=== PATIENT | female | born 1995 | race Caucasian/White ===

== ENCOUNTER 2018-02-09 14:54 | Emergency (ER) | payer OTHER ==
[~2018-02-09] VITALS: Ht 147.3 cm; Wt 44.0 kg
[~2018-02-09 14:54] MED LIST: TUSSI PRES-B L120 M1 PO; ZITHROMAX TRI-500 MG PO
[2018-02-09] MEDS ORDERED: IBUPROFEN800 MG PO (16:59)
== END 2018-02-09 17:55 | disposition home or self-care (01) ==
LOC: ER 14:54
DX: G89.11 Acute pain due to trauma (principal); M54.2 Cervicalgia; M54.5 Low back pain

== ENCOUNTER 2018-07-29 06:30 | Emergency (ER) | payer OTHER ==
[~2018-07-29] VITALS: Ht 147.3 cm; Wt 41.3 kg
[~2018-07-29 06:30] MED LIST changes: +IBUPROFEN800 MG PO
== END 2018-07-29 14:43 | disposition home or self-care (01) ==
LOC: ER 06:30
DX: O26.891 Other specified pregnancy related conditions, first trimester (principal); R10.2 Pelvic and perineal pain; M54.5 Low back pain; Z34.81 Encounter for supervision of other normal pregnancy, first trimester

== ENCOUNTER 2019-12-13 15:27 | Emergency (ER) | payer OTHER ==
[~2019-12-13] VITALS: Ht 160 cm; Wt 49.9 kg
== END 2019-12-13 18:55 | disposition home or self-care (01) ==
LOC: ER 15:27
DX: M54.89 Other dorsalgia (principal)

== ENCOUNTER 2020-01-15 19:54 | Emergency (ER) | payer OTHER ==
[~2020-01-15] VITALS: Ht 147.3 cm; Wt 39.9 kg
== END 2020-01-15 20:50 | disposition home or self-care (01) ==
LOC: ER 19:54
DX: M54.89 Other dorsalgia (principal)

== ENCOUNTER 2021-12-08 13:50 | Emergency (ER) | payer OTHER ==
[~2021-12-08] VITALS: Ht 147.3 cm; Wt 43.1 kg
== END 2021-12-08 19:39 | disposition home or self-care (01) ==
LOC: ER 13:50
DX: K29.00 Acute gastritis without bleeding (principal); E86.0 Dehydration; Z20.822 Contact with and (suspected) exposure to COVID-19

== ENCOUNTER 2022-09-29 09:12 | Emergency (ER) | payer OTHER ==
[~2022-09-29] VITALS: Ht 152.4 cm; Wt 65.8 kg
[2022-09-29] MEDS ORDERED: KETO10TA2 PO ×2 (13:33→13:34)
== END 2022-09-29 13:00 | disposition home or self-care (01) ==
LOC: ER 09:12
DX: K80.10 Calculus of gallbladder with chronic cholecystitis without obstruction (principal)